=== PATIENT | male | born 1990 | race African-American/Black ===

== ENCOUNTER 2017-02-22 18:54 | Inpatient (IN) | payer OTHER ==
--- NOTE | ~2017-02-22 | DS ---
Unit #: [id number] #: [id number] Patient: SUHA ANGEL [id number] [facility] [address] [place] [address] [id number] I MR#: [id number] NAME: SUHA ANGEL ROOM: [facility] Age: 27 Sex: M Admission Date: 02/22/2017 : 1990 Discharge Date: 03/02/2017 Attending Physician: Usama Herbert M.D. Primary Care Physician: Primary Care Physician No DISCHARGE SUMMARY REASON FOR ADMISSION Suha is a 27-year-old man, brought in by police with reports of auditory hallucinations with command to hurt other people. He has a long history of schizophrenia and has been noncompliant with medications. He was readmitted for stabilization. DIAGNOSTIC STUDIES LABORATORY RESULTS: Please see hospital chart. HOSPITAL COURSE Suha was admitted and placed on suicide precautions. Depakote 500 mg b.i.d. and clozapine 100 mg at bedtime was initiated, was then later increased to 125 mg daily. Suha had no negative adverse effects to his clozapine and Thorazine previously used was provided only as a p.r.n. for agitation, which occurred on a few occasions. Suha was otherwise avoiding of participation in milieu and did not attend any groups or activities. On the date of discharge, we felt he had reached maximum benefit from hospitalization, and his state guardian was notified of a discharge with followup through [facility]. DISCHARGE DIAGNOSES AXIS I: Schizophrenia, paranoid type. AXIS II: No diagnosis. AXIS III: Obesity. AXIS IV: AXIS V: DISCHARGE MEDICATIONS Depakote 500 mg b.i.d. for mood stability and clozapine 125 mg at bedtime for psychosis. CBC with differential weekly for clozapine management. CONDITION AT DISCHARGE Fair. PROGNOSIS Fair, but will improve with compliance and followup. DIET AND ACTIVITY Per primary care doctor. Dictated by... Unit #: [id number] #: [id number] Patient: SUHA ANGEL Usama Herbert M.D. [facility]/herbie TD: 04/14/2017 23:15 JOB #: [id number] DISCHARGE SUMMARY Page 1 of 1 X Usama Herbert MD X DISCHARGE SUMMARY
--- NOTE | ~2017-02-22 | PA ---
Unit #: [id number] #: [id number] Patient: VINCENT MERRILL [id number] [facility] [address] [place] [address] [id number] I MR#: [id number] NAME: VINCENT MERRILL ROOM: [facility]3 Age: 27 Sex: M Admission Date: 02/22/2017 : 1990 Date of Assessment: 02/23/2017 Attending Physician: Usama Herbert M.D. Admitting Physician: Usama Herbert M.D. Primary Care Physician: Primary Care Physician No PSYCHIATRIC ASSESSMENT DATE OF ASSESSMENT 02/23/2017. INFORMANTS The patient considered partially reliable, OLOP considered reliable. CHIEF COMPLAINT Auditory hallucinations. HISTORY OF PRESENT ILLNESS Vincent Merrill is a 27-year-old man with a long history of schizophrenia and multiple admissions to our facility. He was brought in by police after he reported paranoia and auditory hallucinations. He believed that other people were antagonizing and then reported auditory hallucinations with command to hurt others. The patient was also inappropriate in the assessment and was taken to the unit on an urgent basis. PAST PSYCHIATRIC HISTORY Vincent has a long history of schizophrenia with multiple treatment attempts. He has been successful on clozapine in the past, but has difficulty following up with this medication in the outpatient setting. FAMILY PSYCHIATRIC HISTORY None reported. SOCIAL HISTORY The patient is typically homeless. Please see previous assessments for details. MEDICAL HISTORY Obesity. MEDICATIONS Depakote and clozapine. ALLERGIES No known medication allergies. SUBSTANCE ABUSE HISTORY None reported. MENTAL STATUS EXAMINATION Vincent presented as a disheveled man who appeared his stated age. He was Unit #: [id number] #: [id number] Patient: VINCENT MERRILL quiet, but cooperative with the examination. His speech was soft, sparse, and easily understood. His musculoskeletal examination was calm. His mood was euthymic with a flat affect. He was alert and oriented to person, location, and time, but not situation. Memory and concentration were impaired, and his thought processes were paranoid with command auditory hallucinations to harm others. Insight and judgment were fair. Fund of knowledge and abstraction were impaired. ASSETS AND LIABILITIES The patient is generally youthful and knows local resources. Liabilities include lack of support and lack of compliance. ADMITTING DIAGNOSES AXIS I: Schizophrenia, paranoid type. AXIS II: No diagnosis. AXIS III: Obesity. AXIS IV: AXIS V: PSYCHIATRIC PLAN Vincent was admitted and placed on suicide precautions. We will restart Depakote 500 mg b.i.d. for mood stability and restart clozapine with a goal to reach 125 mg, which is the patient's most effective dose. Laboratory studies appropriate for clozapine management will be obtained, and a physical examination will be ordered. TREATMENT GOALS Resolution of psychosis, improvement in insight, and improvement in coping skills. DISCHARGE PLANNING Follow up with [facility]. ESTIMATED LENGTH OF STAY 5 days. Dictated by... Usama Herbert M.D. [facility]/herbie TD: 04/15/2017 00:57 JOB #: [id number] PSYCHIATRIC ASSESSMENT Page 1 of 1 X Usama Herbert MD X PSYCHIATRIC ASSESSMENT
--- NOTE | ~2017-02-22 | HP ---
Unit #: [id number] #: [id number] Patient: VINCENT ANGEL [id number] [place] [address] [id number] I MR#: [id number] NAME: VINCENT ANGEL ROOM: P257 Age: 26 Sex: M Admission Date: 02/22/2017 : 1990 Attending Physician: Usama Herbert M.D. Admitting Physician: Usama Herbert M.D. Primary Care Physician: Primary Care Physician No HISTORY AND PHYSICAL HISTORY OF PRESENT ILLNESS Vincent is a [age] year old admitted to [address] [place] [address] with psychotic behavior. He has had numerous admissions to this facility. He is a poor historian so his history is taken from his chart. PAST MEDICAL HISTORY 1. Obesity 2. Seizure disorder 3. History of CHI PAST SURGICAL HISTORY Nothing reported ALLERGIES No known drug allergies. SOCIAL HISTORY He does not smoke or drink alcohol. He has history of opioid abuse. FAMILY HISTORY Medically noncontributory. REVIEW OF SYSTEMS He does not answer any questions appropriately. There are no reports of nausea, vomiting or diarrhea. He has had no cough or increased temperature. CURRENT MEDICATIONS 1. Clozaril 25 mg q.a.m., 100 mg q.h.s. 2. Depakote 500 mg b.i.d. 3. Lorazepam p.r.n. 4. Desyrel p.r.n. 5. Tylenol p.r.n. 6. Milk of Magnesia p.r.n. 7. Maalox p.r.n. 8. Nicotine patch 14 mg q day PHYSICAL EXAMINATION GENERAL: Alert, well-nourished, in no apparent distress. VITAL SIGNS: Blood pressure 152/84, heart rate 80, respirations 16, temperature 98.6. WEIGHT: 256 pounds. Unit #: [id number] #: [id number] Patient: VINCENT ANGEL HEIGHT: 5'9". SKIN: Warm and dry without rash or lesion. HEENT: Normocephalic. TMs not viewed. Oral and nasal passages clear. Conjunctivae clear. Pupils equal, round and reactive to light and accommodation. Extraocular movements intact. NECK: Supple without lymphadenopathy or thyromegaly. HEART: Regular rate and rhythm without murmur. LUNGS: Clear. ABDOMEN: Soft, nontender. : Not done. EXTREMITIES: No evidence of cyanosis, clubbing or edema. Moves all extremities without focal deficit. NEUROLOGICAL: Unable to complete extended exam. He does move all extremities without focal deficit. Hand superintendent marine is equal and gait is normal. IMPRESSION Psychiatric admission RECOMMENDATIONS PSYCHIATRIC: Per psychiatrist. MEDICAL: I see no contraindications to participating in facility's activities. MEDICAL PROGNOSIS Good. MEDICAL CONDITION Stable. Dictated by... Asiya Gleason P.A.-C. for Fadi Monsalve/jasiel TD: 02/23/2017 21:45 JOB #: [id number] HISTORY AND PHYSICAL Page 1 of 1 X Asiya Gleason X HISTORY AND PHYSICAL
[2017-02-23 09:37] LABS: BASOPHIL% 0.2 % (0-2.5); EOSINOPHIL# 0.2 X10e3 (0-0.7); EOSINOPHIL% 2.5 % (0.0-7.0); HEMATOCRIT 40.5 % (38.0-50.0); HEMOGLOBIN 13.7 gm/dL (13.0-16.0); LYMPHOCYTE# 2.2 X10e3 (1.0-3.5); LYMPHOCYTE% 30.2 % (17.0-45.0); MEAN CELL VOLUME 80.9 FL (83-96); MEAN CORPUSCULAR HEMOGLOBIN 27.3 PG (28-34); MEAN CORPUSCULAR HGB CONC 33.7 g/dL (30-36); MEAN PLATELET VOLUME 7.4 FL (6.5-11.5); MONOCYTE# 0.9 X10e3 (0-1.0); MONOCYTE% 12.9 % (3.0-12.0); NEUTROPHIL# 3.9 X10e3 (1.5-7.1); NEUTROPHIL% 54.2 % (40-75); PLATELET COUNT 312 X10e3 (140-420); RED BLOOD COUNT 5.01 X10e (3.90-5.60); RED CELL DISTRIBUTION WIDTH 13.6 % (11.0-15.5); WHITE BLOOD COUNT 7.2 X10e3 (4.0-10.5)
[2017-02-23 09:40] LABS: DIFF IND NO
[2017-02-23 09:56] LABS: BILIRUBIN,TOTAL 0.7 mg/dL (0.2-2.0); BUN/CREATININE RATIO 13.33; CREATININE SERUM 0.9 mg/dL (0.6-1.4); GLOM FILT RATE Estimated 134.2 mL/min (>60); POTASSIUM 4.3 mmol/L (3.5-5.1); PROTEIN TOTAL SERUM 7.2 g/dL (6.0-8.3)
[2017-03-01 09:59] LABS: AMPHETAMINE NEG (NEG); BARBITURATES NEG (NEG); BENZODIAZEPINES POS (NEG); COCAINE NEG (NEG); MARIJUANA NEG (NEG); OPIATES NEG (NEG); TRICYCLIC ANTIDEPRESSANTS POS (NEG); U METHADONE NEG (NEG)
[2017-03-01 10:12] LABS: URINE APPEARANCE CLEAR; URINE BILIRUBIN NEG (NEG); URINE BLOOD NEG (NEG); URINE COLOR YELLOW; URINE GLUCOSE NEG (NEG); URINE KETONE TRACE (NEG); URINE LEUKOCYTE ESTERASE NEG (NEG); URINE NITRATE NEG (NEG); URINE PH 5.5 (5-8); URINE PROTEIN NEG (NEG); URINE SPECIFIC GRAVITY 1.025 (1.003-1.035)
[2017-03-02 09:31] LABS: BASOPHIL% 0.5 % (0-2.5); EOSINOPHIL# 0.2 X10e3 (0-0.7); HEMATOCRIT 41.3 % (38.0-50.0); HEMOGLOBIN 13.8 gm/dL (13.0-16.0); LYMPHOCYTE% 32.8 % (17.0-45.0); MEAN CELL VOLUME 81.1 FL (83-96); MEAN CORPUSCULAR HEMOGLOBIN 27.2 PG (28-34); MEAN CORPUSCULAR HGB CONC 33.5 g/dL (30-36); MEAN PLATELET VOLUME 6.8 FL (6.5-11.5); MONOCYTE# 1.4 X10e3 (0-1.0); NEUTROPHIL# 4.5 X10e3 (1.5-7.1); NEUTROPHIL% 49.7 % (40-75); PLATELET COUNT 423 X10e3 (140-420); RED BLOOD COUNT 5.09 X10e (3.90-5.60); RED CELL DISTRIBUTION WIDTH 13.4 % (11.0-15.5); WHITE BLOOD COUNT 9.1 X10e3 (4.0-10.5)
[2017-03-02 09:33] LABS: DIFF IND NO
== END 2017-03-02 15:59 | disposition home or self-care (01) | DRG 885 ==
LOC: P1S 18:54 → P2L 02-23 15:31 → P1S 02-26 15:16
PROVIDERS: Psychiatry & Neurology Psychiatry
DX: F20.0 Paranoid schizophrenia (principal); G40.909 Epilepsy, unspecified, not intractable, without status epilepticus; E66.9 Obesity, unspecified; Z59.0 Homelessness; Z91.14 Patient's other noncompliance with medication regimen
CPT/HCPCS: 80053; 80164; 80307; 81003; 82140; 85025; J2060; J3230

== ENCOUNTER 2017-08-05 18:28 | Inpatient (IN) | payer OTHER ==
--- NOTE | ~2017-08-05 | DS ---
Unit #: [id number] #: [id number] Patient: SUHA ANGEL [id number] [place] [address] [id number] I MR#: [id number] NAME: SUHA ANGEL ROOM: [facility] Age: 27 Sex: M Admission Date: 08/05/2017 : 1990 Discharge Date: 08/17/2017 Attending Physician: Usama Herbert M.D. Primary Care Physician: Primary Care Physician No DISCHARGE SUMMARY REASON FOR ADMISSION Suha is a 27-year-old man with a known history of disorganized schizophrenia, who had just been released from longterm and presented to [facility], in an extremely bizarre and inappropriate state. He had clearly been off medications and was readmitted for stabilization. DIAGNOSTIC STUDIES LABORATORY RESULTS: On 08/14/2017, WBCs were 6.6 and on 08/16/2017, 8.7. Neutrophil numbers were 3.8 on 08/14/2017 and 4.7 on 08/16/2017. HOSPITAL COURSE Suha was admitted and placed on psychosis precautions. Clozapine 125 mg was re-initiated and the patient was given multiple injections of p.r.n. Thorazine, Haldol, and Geodon with Ativan for an extremely agitated presentation. He was very threatening toward staff and peers and required multiple episodes of seclusion and restraint. His ACT team met with him, but he was reluctant to accept their services and difficult to redirect given his bizarre behavior. On the date of discharge, he felt he had achieved maximum benefit from hospitalization. DISCHARGE DIAGNOSES AXIS I: Schizophrenia, disorganized type. AXIS II: No diagnosis. AXIS III: Obesity. AXIS IV: AXIS V: DISCHARGE INSTRUCTIONS Follow up with [facility]. DISCHARGE MEDICATIONS Clozapine 125 mg at bedtime for psychosis, Thorazine 100 mg t.i.d. for psychosis, and Depakote sustained release 500 mg b.i.d. for mood stability. CONDITION AT DISCHARGE Fair. PROGNOSIS Fair. DIET AND ACTIVITY Unit #: [id number] #: [id number] Patient: SUHA ANGEL Per primary care doctor. Dictated by... Usama Herbert M.D. [facility]/modl TD: 08/17/2017 14:09 JOB #: [id number] DISCHARGE SUMMARY Page 1 of 1 X Usama Herbert MD DISCHARGE SUMMARY
--- NOTE | ~2017-08-05 | PN ---
Unit #: [id number] #: [id number] Patient: VINCENT ANGEL [id number] [facility] [address] [place] [address] [id number] I MR#: [id number] NAME: VINCENT ANGEL ROOM: [facility] Age: 27 Sex: M Admission Date: 08/05/2017 : 1990 Attending Physician: Usama Herbert M.D. Admitting Physician: Usama Herbert M.D. Primary Care Physician: Primary Care Physician Silva ROPER PROGRESS NOTES DATE 08/15/2017 DISCUSSION Vincent's CBC this morning demonstrates a drop in his WBC count to 6.6, and a drop in his neutrophil number to 3.8. This is somewhat concerning given his recent increase in clozapine, and so I will recheck this in the morning. the patient continues to be easily agitated and requires occasional p.r.n. doses of intramuscular medications due to extreme self harm or in risk of harm to others through impulsive violence. He continues to be watchful, paranoid, and uncooperative. ASSESSMENT Schizophrenia, paranoid type. PLAN Continue current treatment plan and use IM medications as needed. Dictated by... Fadi Sheppard/dede TD: 08/17/2017 13:16 JOB #: [id number] [facility] KERR NOTES Page 1 of 1 X Usama Herbert MD PROGRESS NOTE
--- NOTE | ~2017-08-05 | CR142 ---
[facility] A Service of [facility] RADIOLOGY TEXT RESULTS PATIENT: SUHA ANGEL LOCATION: P1S P125-1 : [birth year] UNIT #: [id number] AGE: [address]: Usama Herbert MD SEX: M ORDER DR: [id number] [place] [id number] [facility]. [place], [place] [address] [id number] I MR#: [id number] Acc #: [id number] NAME: SUHA ANGEL : 1990 SEX: M STUDY DATE/TIME: 08/07/2017 13:38 UNIT: P1S ROOM: [facility] STUDY DESCRIPTION: CR Hand Min 3 Views Rt Attending Physician: Usama Herbert M.D. Ordering Physician: Usama Herbert M.D. Primary Care Physician: Primary Care Physician No MEDICAL IMAGING REPORT This report is preliminary unless electronic signature is present EXAM Right hand INDICATIONS Swollen right hand. Swelling in the fingers. FINDINGS 3 views of the right hand compared with 08/05/2017. There is generalized soft tissue swelling over the dorsum of the hand. There is no underlying fracture. No osseous abnormalities. No foreign body. IMPRESSION Generalized soft tissue swelling of the right hand. Dictated by... Satish Iverson M.D. THIS IS AN ELECTRONICALLY VERIFIED REPORT Satish Iverson M.D. at 08/08/2017 1:26 PM ABDELRAHMAN/devaughn TD: 08/08/2017 09:41 JOB #: [id number] MEDICAL IMAGING REPORT Page 1 of 1 COPY
--- NOTE | ~2017-08-05 | PA ---
Unit #: [id number] #: [id number] Patient: VINCENT MERRILL [id number] [facility] [address] [place] [address] [id number] I MR#: [id number] NAME: VINCENT MERRILL ROOM: [facility]5 Age: 27 Sex: M Admission Date: 08/05/2017 : 1990 Date of Assessment: Attending Physician: Usama Herbert M.D. Admitting Physician: Usama Herbert M.D. Primary Care Physician: Primary Care Physician No PSYCHIATRIC ASSESSMENT INFORMANTS The patient, unreliable. [facility], reliable. OLOP, unreliable. CHIEF COMPLAINT Disorganized behavior. HISTORY OF PRESENT ILLNESS Vincent Merrill is a 27-year-old man with a known history of disorganized schizophrenia, who presented to [facility], apparently [facility]. He had been staying at [facility], but engaging in an appropriate and sexualized behaviors there and was having extreme bizarre conversation and delusion. He was clearly decompensated and [facility]. PAST PSYCHIATRIC HISTORY Multiple admissions to our facility with diagnosis of schizophrenia and generally disorganized state. The patient has apparently been off all medications for some time. He was previously prescribed clozapine, which was effective. He has a history of chronic hospitalization and chronic outpatient failure. FAMILY PSYCHIATRIC HISTORY None reported. SOCIAL HISTORY The patient is homeless and which was [facility] from [facility]. He has no psychosocial support in the community. PAST MEDICAL HISTORY Mild obesity. MEDICATIONS Depakote and clozapine with p.r.n. Thorazine for agitation. ALLERGIES No known medication allergies. SUBSTANCE USE HISTORY None reported. MENTAL STATUS EXAMINATION Vincent presented as a mildly disheveled man, appearing his stated age. He Unit #: [id number] #: [id number] Patient: VINCENT MERRILL was quite agitated upon arrival, wearing paper hospital clothing that continually fell down and exposed his backside and genitalia to the unit. He was engaging in bizarre behavior such as splinting up and down the unit, yelling wildly and laughing uncontrollably. Further psychiatric interview was not possible at this time. ASSETS AND LIABILITIES The patient is in general good health. Liabilities include lack of current treatment and support. ADMITTING DIAGNOSES AXIS I: Schizophrenia, disorganized, and paranoid. AXIS II: No diagnosis. AXIS III: Obesity. AXIS IV: AXIS V: PSYCHIATRIC PLAN The patient was admitted and placed back on psychosis precautions. We will restart his previous medications and obtain baseline laboratory studies to ensure adequate prescribing CBCs for clozapine. We will use p.r.n. Thorazine and intramuscular medications as needed treatment. TREATMENT GOALS Resolution of psychosis, improvement in insight, and improvement in coping skills. DISCHARGE PLANNING Follow up with [facility]. ESTIMATED LENGTH OF STAY 5 days. Dictated by... Usama Herbert M.D. ANNAMARIA/herbie TD: 08/07/2017 05:15 JOB #: [id number] PSYCHIATRIC ASSESSMENT Page 1 of 1 X Usama Herbert MD X PSYCHIATRIC ASSESSMENT
--- NOTE | ~2017-08-05 | HP ---
Unit #: [id number] #: [id number] Patient: VINCENT ANGEL [id number] [place] [address] [id number] I MR#: [id number] NAME: VINCENT ANGEL ROOM: [facility]5 Age: 27 Sex: M Admission Date: 08/05/2017 : 1990 Attending Physician: Usama Herbert M.D. Admitting Physician: Usama Herbert M.D. Primary Care Physician: Primary Care Physician No HISTORY AND PHYSICAL HISTORY OF PRESENT ILLNESS Vincent is a 27 year old admitted to [address] [place] [address] with psychotic behavior. He has had numerous admissions to this facility for the same. His last admission was on 02/22/2017. He was recently released from nursing home. PAST MEDICAL HISTORY 1. Obesity. 2. Seizure disorder. 3. History of CHI. PAST SURGICAL HISTORY Nothing reported. ALLERGIES No known drug allergies. SOCIAL HISTORY He does not smoke or drink alcohol. He has a history of opioid abuse but no indication of anything currently. FAMILY HISTORY Medically noncontributory. REVIEW OF SYSTEMS He does not answer questions appropriately. There are no reports of nausea, vomiting, or diarrhea. He has had no cough or increased temperature. CURRENT MEDICATIONS 1. Clozaril 125 mg q.h.s. 2. Depakote 500 mg b.i.d. 3. Thorazine 100 mg q. 6 hours p.r.n. 4. Milk of Magnesia p.r.n. 5. Maalox p.r.n. 6. Tylenol p.r.n. PHYSICAL EXAMINATION GENERAL: Alert, obese. No apparent distress. VITAL SIGNS: Blood pressure 156/96, heart rate 80, respirations (1) __. WEIGHT: 256. HEIGHT: 5 feet 9 inches. SKIN: Warm and dry without rash or lesion. HEENT: Normocephalic. TMs not viewed. Oral and nasal passages clear. Unit #: [id number] #: [id number] Patient: VINCENT ANGEL Conjunctivae clear. PERRLA. EOMs intact. NECK: Supple without lymphadenopathy or thyromegaly. HEART: Regular rate and rhythm without murmur. LUNGS: Clear. ABDOMEN: Soft, nontender. : Not done. EXTREMITIES: No evidence of cyanosis, clubbing or edema. Moves all without focal deficit. NEUROLOGICAL: Unable to complete extended exam. He does move all extremities without focal deficits. Hand business process expert is equal and gait is normal. IMPRESSION Psychiatric admission. RECOMMENDATIONS PSYCHIATRIC: Per psychiatrist. MEDICAL: I see no contraindication to participate in this facility's activities. MEDICAL PROGNOSIS Good. MEDICAL CONDITION Stable. Dictated by... Asiya Gleason P.A.-C. for Fadi Monsalve/imani TD: 08/07/2017 14:14 JOB #: [id number] HISTORY AND PHYSICAL Page 1 of 1 X Asiya Gleason X HISTORY AND PHYSICAL
--- NOTE | ~2017-08-05 | PN ---
Unit #: [id number] #: [id number] Patient: VINCENT ANGEL [id number] [facility] [address] [place] [address] [id number] I MR#: [id number] NAME: VINCENT ANGEL ROOM: [facility]6 Age: 27 Sex: M Admission Date: 08/05/2017 : 1990 Attending Physician: Usama Herbert M.D. Admitting Physician: Usama Herbert M.D. Primary Care Physician: No Primary Care Physician JUDSON PROGRESS NOTES DATE 08/11/2017 DISCUSSION Vincent continues to be acute psychotic. He is tolerating clozapine with no adverse side effects but his impression remains unchanged and he has been threatening to staff members. He is alert and oriented to person and location. Memory and concentration were fair. Thought processes are rambling and psychotic with significant paranoia. He remains on one to one. ASSESSMENT Schizophrenia, paranoid type. PLAN Continue current treatment plan anticipating increase in clozapine later in the week. Dictated by... Fadi Sheppard/regan TD: 08/19/2017 03:05 JOB #: [id number] [facility] PROGRESS NOTES Page 1 of 1 X Usama Herbert MD PROGRESS NOTE
--- NOTE | ~2017-08-05 | PN ---
Unit #: [id number] #: [id number] Patient: VINCENT ANGEL [id number] [facility] [address] [place] [address] [id number] I MR#: [id number] NAME: VINCENT ANGEL ROOM: [facility] Age: 27 Sex: M Admission Date: 08/05/2017 : 1990 Attending Physician: Usama Herbert M.D. Admitting Physician: Usama Herbert M.D. Primary Care Physician: Primary Care Physician No JUDSON PROGRESS NOTES DATE OF SERVICE: 08/16/2017 DISCUSSION Vincent continues on one-to-one precaution due to aggression and did have one episode of intramuscular medication yesterday. He appears a little calmer this morning with more spontaneous speech, and a little bit brighter affect. He is alert and oriented to person, location. Memory and concentration are only fair. His thought processes continued to be somewhat psychotic, but less aggressive. ASSESSMENT Schizophrenia, paranoid type. PLAN We will continue current medications, anticipating discharge tomorrow feeling that this patient has achieved maximum benefit from this hospitalization. His licensed master social worker will be notified to contact his ACT team for further instructions. Dictated by... Fadi Sheppard/herbie TD: 08/17/2017 05:15 JOB #: [id number] [facility] PROGRESS NOTES Page 1 of 1 X Usama Herbert MD X PROGRESS NOTE
--- NOTE | ~2017-08-05 | PN ---
Unit #: [id number] #: [id number] Patient: VINCENT ANGEL [id number] [facility] [address] [place] [address] [id number] I MR#: [id number] NAME: VINCENT ANGEL ROOM: [facility]5 Age: 27 Sex: M Admission Date: 08/05/2017 : 1990 Attending Physician: Usama Herbert M.D. Admitting Physician: Usama Herbert M.D. Primary Care Physician: Primary Care Physician Silva ROPER PROGRESS NOTES DATE 08/08/2017 DISCUSSION Vincent continues to be compliant with medications but has episodes of agitation, silly, and disorganized behavior, and conflict with peers. He got involved in a conflict with a peer this morning who had just arrived on the unit and required intramuscular medication for calming. His mood remains irritable with a congruent affect. He is alert and fully oriented. Memory and concentration are poor and thought processes are paranoid, stilted, and psychotic. ASSESSMENT Schizophrenia, paranoid type. PLAN We will continue with clozapine and use intramuscular medications when absolutely necessary. Dictated by... Fadi Sheppard/dede TD: 08/09/2017 11:50 JOB #: [id number] [facility] PROGRESS NOTES Page 1 of 1 X Usama Herbert MD PROGRESS NOTE
--- NOTE | ~2017-08-05 | PN ---
Unit #: [id number] #: [id number] Patient: VINCENT ANGEL [id number] [facility] [address] [place] [address] [id number] I MR#: [id number] NAME: VINCENT ANGEL ROOM: [facility]5 Age: 27 Sex: M Admission Date: 08/05/2017 : 1990 Attending Physician: Usama Herbert M.D. Admitting Physician: Usama Herbert M.D. Primary Care Physician: Primary Care Physician Silva ROPER PROGRESS NOTES DATE 08/07/2017 DISCUSSION Vincent has restarted on his clozapine after his WBC and ANC count were appropriate. He received intramuscular medications again last night due to intrusiveness, agitation, and danger to self and others. This morning he is sleeping very heavily after his injection. ASSESSMENT Schizophrenia, paranoid type. PLAN Continue reintroduction of clozapine. Dictated by... Fadi Sheppard/dede TD: 08/09/2017 09:00 JOB #: [id number] [facility] PROGRESS NOTES Page 1 of 1 X Usama Herbert MD PROGRESS NOTE
--- NOTE | ~2017-08-05 | PN ---
Unit #: [id number] #: [id number] Patient: VINCENT ANGEL [id number] [facility] [address] [place] [address] [id number] I MR#: [id number] NAME: VINCENT ANGEL ROOM: [facility]5 Age: 27 Sex: M Admission Date: 08/05/2017 : 1990 Attending Physician: Usama Herbert M.D. Admitting Physician: Usama Herbert M.D. Primary Care Physician: Primary Care Physician Silva ROPER PROGRESS NOTES DATE 08/09/2017 DISCUSSION Vincent continued to required intramuscular medications on 3 occasions yesterday due to agitation and out of control behavior. He is also deliberately urinating on the floor of his room this morning and shows no inclination to take responsibility for this. He is compliant with clozapine with no significant sedation or adverse side effects. He is wanting to meet with his case managers and I believe that a meeting is scheduled for later this week. ASSESSMENT Schizophrenia, paranoid type. PLAN Continue current treatment plan and enforce good behaviors. Dictated by... Fadi Sheppard/jessica TD: 08/10/2017 22:55 JOB #: [id number] JU[facility] PROGRESS NOTES Page 1 of 1 X Usama Herbert MD PROGRESS NOTE
--- NOTE | ~2017-08-05 | CO ---
Unit #: [id number] #: [id number] Patient: VINCENT ANGEL [id number] [place] [address] [id number] MR#: [id number] NAME: VINCENT ANGEL ROOM: [facility] Age: 27 Sex: M Admission Date: 08/05/2017 : 1990 Attending Physician: Usama Herbert M.D. Primary Care Physician: Primary Care Physician No Consultation Date: 08/06/2017 CONSULTATION REPORT SUBJECTIVE Vincent is a 27-year-old who had some soft tissue swelling along his right hand at the time of admission. We have been asked to assess and give recommendations. OBJECTIVE GENERAL: Alert, psychotic, no apparent distress. VITAL SIGNS: Blood pressure 150/90, heart rate 80, respirations 16, and temperature 99.9. Right hand with 1+ soft tissue swelling across the top of the hand. There is no bruising or redness noted. No gross deformity about any of the knuckles. Full range of motion with minimal tenderness. ASSESSMENT Soft tissue swelling. At this time, it appears that he may have had an IV in the hand and it infiltrated. PLAN We will get an x-ray to rule out fracture or dislocation. Dictated by... Asiya Gleason P.A.-C. for Fadi Monsalve/herbie TD: 08/08/2017 01:36 JOB #: [id number] CONSULTATION REPORT Page 1 of 1 X Asiya Gleason CONSULTATION REPORT
[2017-08-06 09:46] LABS: ALBUMIN SERUM 4.3 g/dL (3.5-5.0); BUN/CREATININE RATIO 16.25; CALCIUM SERUM 9.7 mg/dL (8.4-10.2); CREATININE SERUM 0.8 mg/dL (0.6-1.4); POTASSIUM 4.3 mmol/L (3.5-5.1); PROTEIN TOTAL SERUM 7.4 g/dL (6.0-8.3)
[2017-08-06 09:49] LABS: BASOPHIL# 0.1 X10e3 (0-0.3); BASOPHIL% 0.5 % (0-2.5); EOSINOPHIL# 0.1 X10e3 (0-0.7); HEMATOCRIT 41.4 % (38.0-50.0); HEMOGLOBIN 14.5 gm/dL (13.0-16.0); LYMPHOCYTE% 30.8 % (17.0-45.0); MEAN CELL VOLUME 82.2 FL (83-96); MEAN CORPUSCULAR HEMOGLOBIN 28.8 PG (28-34); MEAN PLATELET VOLUME 7.8 FL (6.5-11.5); MONOCYTE# 1.4 X10e3 (0-1.0); MONOCYTE% 14.3 % (3.0-12.0); NEUTROPHIL# 5.3 X10e3 (1.5-7.1); NEUTROPHIL% 53.4 % (40-75); PLATELET COUNT 355 X10e3 (140-420); RED BLOOD COUNT 5.03 X10e (3.90-5.60); RED CELL DISTRIBUTION WIDTH 14.4 % (11.0-15.5); WHITE BLOOD COUNT 9.9 X10e3 (4.0-10.5)
[2017-08-06 09:53] LABS: DIFF IND NO
[2017-08-14 14:18] LABS: BASOPHIL% 0.4 % (0-2.5); EOSINOPHIL# 0.2 X10e3 (0-0.7); EOSINOPHIL% 2.3 % (0.0-7.0); HEMATOCRIT 39.5 % (38.0-50.0); HEMOGLOBIN 13.3 gm/dL (13.0-16.0); LYMPHOCYTE% 30.8 % (17.0-45.0); MEAN CELL VOLUME 82.6 FL (83-96); MEAN CORPUSCULAR HEMOGLOBIN 27.9 PG (28-34); MEAN CORPUSCULAR HGB CONC 33.8 g/dL (30-36); MEAN PLATELET VOLUME 7.3 FL (6.5-11.5); MONOCYTE# 0.6 X10e3 (0-1.0); MONOCYTE% 8.9 % (3.0-12.0); NEUTROPHIL# 3.8 X10e3 (1.5-7.1); NEUTROPHIL% 57.6 % (40-75); PLATELET COUNT 431 X10e3 (140-420); RED BLOOD COUNT 4.78 X10e (3.90-5.60); RED CELL DISTRIBUTION WIDTH 14.2 % (11.0-15.5); WHITE BLOOD COUNT 6.6 X10e3 (4.0-10.5)
[2017-08-14 14:24] LABS: DIFF IND YES
[2017-08-14 17:27] LABS: PLATELET ESTIMATE NORMAL (NORMAL)
[2017-08-14 17:28] LABS: RBC NORMAL YES
[2017-08-16 09:38] LABS: BASOPHIL% 0.5 % (0-2.5); EOSINOPHIL# 0.2 X10e3 (0-0.7); EOSINOPHIL% 2.1 % (0.0-7.0); HEMATOCRIT 39.6 % (38.0-50.0); HEMOGLOBIN 13.9 gm/dL (13.0-16.0); LYMPHOCYTE# 2.8 X10e3 (1.0-3.5); LYMPHOCYTE% 31.6 % (17.0-45.0); MEAN CELL VOLUME 81.8 FL (83-96); MEAN CORPUSCULAR HEMOGLOBIN 28.7 PG (28-34); MEAN CORPUSCULAR HGB CONC 35.1 g/dL (30-36); MEAN PLATELET VOLUME 6.8 FL (6.5-11.5); MONOCYTE% 11.8 % (3.0-12.0); NEUTROPHIL# 4.7 X10e3 (1.5-7.1); PLATELET COUNT 498 X10e3 (140-420); RED BLOOD COUNT 4.84 X10e (3.90-5.60); RED CELL DISTRIBUTION WIDTH 13.9 % (11.0-15.5); WHITE BLOOD COUNT 8.7 X10e3 (4.0-10.5)
[2017-08-16 09:42] LABS: DIFF IND NO
== END 2017-08-17 11:30 | disposition home or self-care (01) | DRG 885 ==
LOC: P1S 23:14 → POF 08-12 09:56 → P1S 08-17 11:30
PROVIDERS: Psychiatry & Neurology Psychiatry
DX: F20.0 Paranoid schizophrenia (principal); F20.1 Disorganized schizophrenia; E66.9 Obesity, unspecified; G40.909 Epilepsy, unspecified, not intractable, without status epilepticus; M79.89 Other specified soft tissue disorders
CPT/HCPCS: 73130; 80053; 85025; J1200; J1630; J2060; J3230; J3486